=== PATIENT | male | born 1995 | race Caucasian/White ===

== ENCOUNTER 2020-04-22 09:50 | Emergency (ER) | payer OTHER ==
[~2020-04-22] VITALS: Ht 182.9 cm; Wt 50.8 kg
[~2020-04-22 09:50] MED LIST: NOHOMEMEDICATIONS
[2020-04-22 10:06] LABS: ABSOLUTE BASOPHILS 0.3 thou/uL (0.0-0.2); ABSOLUTE EOSINOPHILS 0.4 thou/uL (0.0-0.7); ABSOLUTE LYMPHOCYTES 4.2 thou/uL (0.8-5.3); ABSOLUTE MONOCYTES 1.5 thou/uL (0.0-1.2); ABSOLUTE NEUTROPHILS 4.6 thou/uL (1.6-8.1); BASOPHILS 2.8 %; EOSINOPHILS 3.6 %; HEMATOCRIT 39.8 % (42.0-52.0); HEMOGLOBIN 13.2 gm/dL (14.0-18.0); LYMPHOCYTES 38.1 %; MCH 31.2 pg (26.0-34.0); MCHC 33.3 g/dL (28.0-37.0); MCV 93.6 fL (80.0-100.0); MONOCYTES 13.6 %; MPV 6.4 fl. (7.2-11.1); NUCLEATED RBCS 0 /100WBC; POLYS 41.9 %; RBC 4.25 mil/uL (4.50-6.00); RDW-CV 15.5 % (10.5-14.5); WBC 10.9 thou/uL (4.0-11.0)
[2020-04-22 10:10] LABS: PLATELET COUNT* 1249 thou/uL (150-400)
[2020-04-22 10:14] LABS: CALCIUM 8.3 mg/dL (8.5-10.1); CREATININE 0.9 mg/dL (0.6-1.3); POTASSIUM 4.4 mmol/L (3.5-5.1)
[2020-04-22 10:18] LABS: ALBUMIN 3.8 g/dL (3.4-5.0); TOTAL PROTEIN 7.4 g/dL (6.4-8.2)
[2020-04-22] MEDS ORDERED: NORCO 5-325 TA1 EAC2 PO (11:55)
[2020-04-22] MEDS ORDERED: KEFLEX500 M1 PO (11:55)
[2020-04-22] MEDS ORDERED: BACTRIM DS TAB1 EACH PO (11:55)
[2020-04-22 11:59] LABS: APTT 28.9 Seconds (25.0-31.3); INR 1.2; PROTIME 12.4 Seconds (9.20-11.50)
[2020-04-22 12:28] VITALS: BP 102/62
== END 2020-04-22 12:29 | disposition home or self-care (01) ==
LOC: M.ERS 09:50
PROVIDERS: Family Medicine
DX: R10.9 Unspecified abdominal pain (principal); D47.3 Essential (hemorrhagic) thrombocythemia; Z90.49 Acquired absence of other specified parts of digestive tract